=== PATIENT | female | born 1955 | race Caucasian/White ===

== ENCOUNTER → 2016-10-17 | Outpatient (CLI) | payer OTHER | LOC: CIMAGING 14:46 | PROVIDERS: ATTEND Family Medicine | DX: Z12.31 Encounter for screening mammogram for malignant neoplasm of breast (principal) | CPT/HCPCS: G0202 ==

== ENCOUNTER 2017-08-03 12:43 | Emergency (ER) | payer OTHER ==
--- NOTE | 2017-08-03 13:02 | CPEKG ---
Heart Rate: 136 RR Interval: 441 QRSD Interval: 124 QT Interval: 324 QTC Interval: 488 QRS [place]: 34 T Wave [place]: 94 EKG Severity - ABNORMAL ECG - EKG Impression: ATRIAL FLUTTER, A-RATE 300 EKG Impression: VENT PREEXCITATION, RIGHT ACCESSORY PATHWAY Electronically Signed By: Nilam Abbott 03-Aug-2017 21:03:05
[2017-08-03] MEDS ORDERED: ASPIRIN 81 MG CHEWABLE TAB PO ONE (13:09)
[2017-08-03] MEDS ORDERED: NS 1,000 ML IV ONE (13:10)
--- NOTE | 2017-08-03 13:12 | EDPHY ---
H & P Stated Complaint: FEELS RAPID HEART BEAT/SENT BY DR. RICHEY EKG Time Seen by Provider: 08/03/17 12:56 HPI/ROS: CHIEF COMPLAINT: Palpitations, lightheaded HISTORY OF PRESENT ILLNESS: 62-year-old female presents emergency department from her primary care physician's office. She has a history of atrial fibrillation, paroxysmal, and is currently on metoprolol as well as Eliquis. She has been taking flecainide in the past but it sounds as if there has been some recent changes to her medications and she has been taking the flecainide only once a day for the last week or so. Her metoprolol was increased to 100 mg a day the about 2 weeks ago and then decreased again to 50 about a week ago. She denies any fevers or chills, cold or cough symptoms, nausea, vomiting, or diarrhea preceding today's event. She went to primary care physician's office today for follow-up regarding a visit for chest pain thought to be related to a GI issue which had occurred 2 weeks ago. While she was at her primary care physician's office she developed palpitations. Of note she has recently had a 48 hr Holter monitor during which time she denies feeling any atrial fibrillation or flutter. No fever, chills, shortness of breath, vomiting, diarrhea, urinary complaints, headache, lightheadedness. REVIEW OF SYSTEMS: Aside from elements discussed in the HPI, a comprehensive 10-point review of systems was reviewed and is negative. PAST MEDICAL HISTORY: Atrial fibrillation/atrial flutter. SOCIAL HISTORY: . VITAL SIGNS Reviewed by me. HR varies between 110-136. GENERAL: Well-developed, well-nourished, resting comfortably in no respiratory distress. HEENT: Atraumatic. Eyes: No icterus, no injection. Mouth: moist mucous membranes. No erythema or lesions. Neck: supple with no adenopathy. LUNGS: Clear to auscultation bilaterally, no wheezes, rhonchi or rales. CARDIAC: Irregularly irregular. ABDOMEN: Soft, nontender, nondistended, bowel sounds normal. BACK: No CVA tenderness. EXTREMITIES: No trauma. No edema. Range of motion is normal throughout. NEURO: Alert and oriented, grossly nonfocal. SKIN: Warm and dry, no rash. PSYCHIATRIC: Normal mentation, no agitation. - Personal History Current Tetanus Diphtheria and Acellular Pertussis (TDAP): Yes - Medical/Surgical History Hx Asthma: No Hx Chronic Respiratory Disease: No Hx Diabetes: No Hx Cardiac Disease: Yes Hx Renal Disease: No Hx Cirrhosis: No Hx Alcoholism: No Hx HIV/AIDS: No Hx Splenectomy or Spleen Trauma: No Other PMH: A.FIB ON ELIQUIS, UPPER GI ISSUES, - Social History Smoking Status: Never smoked Constitutional: Initial Vital Signs Temperature (C) 36.5 C 08/03/17 12:49 Heart Rate 73 08/03/17 12:49 Respiratory Rate 16 08/03/17 12:49 Blood Pressure 154/85 H 08/03/17 12:49 O2 Sat (%) 97 08/03/17 12:49 O2 Delivery Mode Room Air Allergies/Adverse Reactions: No Known Allergies Allergy (Unverified 12/15/09 17:33) Home Medications: Medication Instructions Recorded Metoprolol 12/15/09 Eliquis 08/03/17 Metoprolol Succinate Xr [Toprol Xl 50 mg PO BID #60 tab.sr 08/03/17 50 mg (*)] Medical Decision Making - Diagnostics EKG Interpretation: 12-LEAD EKG: Please see the full report in [facility]. My interpretation: Atrial flutter ventricular pre-excitation, right accessory pathway. Imaging Results: CXR: Impression: 1. Mild peribronchial thickening suggesting airways disease/bronchitis. 2. Additional findings as above. Dictated By: Aaron Tim MD Imaging: I viewed and interpreted images myself ED Course/Re-evaluation: 63-year-old female presenting with palpitations. EKG demonstrates atrial flutter. Patient's course was discussed with Dr. Cindy Stallings from [facility]. Patient had been advised to stop taking flecainide by Dr. Dorantes about a week ago. She does report that she has continued to take flecainide 1 tablet a day. Her metoprolol was decreased from 100 mg to [address] Stallings: 1. Stop taking flecainide altogether. It is not controlling her rhythm and it may have organized her atrial fibrillation into atrial flutter. 2. Begin taking metoprolol 50 mg twice daily for a total of 100 mg a day. 3. Follow up with Dr. Dorantes next week. Re-examination at 3:00 p.m.: Patient's heart rate is 90-100. Blood pressure 107/74. She is resting comfortably. I discussed the recommendations above. She understands. She will follow up with Dr. Dorantes. She is given prescription for metoprolol 50 mg twice daily. She was again instructed not to take flecainide. Differential Diagnosis: Differential diagnoses for the patient's sensation of palpitations was considered including but not limited to sinus tachycardia, PACs, PVCs, SVT, atrial fibrillation, atrial flutter, anxiety, panic attack. - Data Points Laboratory Results: Laboratory Results 08/03/17 13:12 08/03/17 13:12 Medications Given: Discontinued Medications Aspirin (Aspirin) 324 mg PO EDNOW ONE Stop: 08/03/17 13:10 Last Admin: 08/03/17 13:26 Dose: 324 mg Sodium Chloride (Ns) 1,000 mls @ 0 mls/hr IV ONCE ONE; Wide Open PRN Reason: Protocol Stop: 08/03/17 13:11 Last Admin: 08/03/17 13:25 Dose: 1,000 mls Metoprolol Succinate (Toprol Xl) 50 mg PO EDNOW ONE Stop: 08/03/17 13:34 Last Admin: 08/03/17 13:40 Dose: 50 mg Departure - Departure Disposition: Home, Routine, Self-Care Clinical Impression: Palpitations Atrial flutter Qualifiers: Atrial flutter type: unspecified Qualified Code(s): I48.92 - Unspecified atrial flutter Condition: Good Instructions: Atrial Flutter (ED) Additional Instructions: 1. Begin taking metoprolol 50 mg 2 times a day. 2. Be sure you stay well-hydrated, drink plenty of fluids and get plenty of rest. 3. Stop taking flecainide. 4. Please follow up with Dr. Dorantes early next week. Referrals: DANIELA RUIZ [Primary Care Provider] - As per Instructions Prescriptions: Metoprolol Succinate Xr [Toprol Xl 50 mg (*)] 50 mg PO BID #60 tab.sr
[2017-08-03 13:19] LABS: PLATELET COUNT 441 10^3/uL (150-400)
[2017-08-03] MEDS ORDERED: METOPROLOL SUCCINATE XR 25 MG TAB PO ONE (13:33)
[2017-08-03 15:19] VITALS: BP 107/60
== END 2017-08-03 15:26 | disposition home or self-care (01) ==
DX: I48.92 Unspecified atrial flutter (principal); E86.9 Volume depletion, unspecified

== ENCOUNTER 2017-08-15 11:22 | Inpatient (IN) | payer OTHER ==
[2017-08-15 13:30] LABS: PLATELET COUNT 381 10^3/uL (150-400)
[2017-08-15 13:37] LABS: INR 1.12 (0.83-1.16); PROTIME(PATIENT) 14.6 SEC (12.0-15.0)
--- NOTE | 2017-08-15 13:54 | CPEKG ---
Heart Rate: 120 RR Interval: 500 QRSD Interval: 82 QT Interval: 304 QTC Interval: 430 QRS [place]: 4 T Wave [place]: -29 EKG Severity - ABNORMAL ECG - EKG Impression: ATRIAL FIBRILLATION, V-RATE 73-153 EKG Impression: VENTRICULAR PREMATURE COMPLEX EKG Impression: BORDERLINE T ABNORMALITIES, INFERIOR LEADS Electronically Signed By: Guillermo Eastman 15-Aug-2017 21:13:30
[2017-08-15] MEDS ORDERED: SOTALOL HCL 80 MG TAB PO ONE (13:58)
[2017-08-15] MEDS ORDERED: ACETAMINOPHEN 325 MG TAB PO PRN (14:12)
[2017-08-15] MEDS ORDERED: CARBOXYMETHYLCELLULOSE 1% 0.4 ML DROPERETTE EACHEYE PRN (14:12)
--- NOTE | 2017-08-15 15:01 | PDCARPN ---
Cardiology Progress Note Chief Complaint: PAF Assessment/Plan: Assessment: 62F PMH htn, PAF, dyslipidemia, here for Sotalol loading. Has been noting worsening exercise tolerance. Last echo 10/09 reviewed showed normal LVEF, + diastolic dysfunction, Holter 08/10 with PAF, baseline ECG (personally interpreted ) shows AF with elevated V rates. Please see office note from that acts as H&P. #. PAF: started on Sotalol [id number] of 2 on Eliquis likely DCCV prior to discharge #. htn: BP somewhat elevated will see effects on BP #. DVT ppx: on Eliquis and plan on early ambulation #. LOS: inpt for high risk med titration Plan: - Start Sotalol - likely CV on Sunday prior to discharge 08/15/17 15:24 Subjective: Feels some dyspnea and palps. Objective: Vital Signs (8 Hrs) Temp Pulse BP 08/15/17 14:07 133 H 121/93 H 08/15/17 11:50 98.4 F 105 H 133/98 H Intake/Output (24 Hrs) 08/14/17 08/15/17 08/16/17 05:59 05:59 05:59 Other: Weight 72.4 kg Number of Voids Toilet 1 Result Diagrams: 08/15/17 13:10 08/15/17 13:10 Telemetry: AF Echocardiogram: 08/09 with normal EF, +DD, mild MR, trace TR - Physical Exam Constitutional: no apparent distress Eyes: PERRL, anicteric sclera Ears, Nose, Mouth, Throat: no oral ulcers Cardiovascular: regular rate and rhythm Respiratory: clear to auscultate bilat Gastrointestinal: normoactive bowel sounds Skin: no rashes, no abrasions Neurologic: AAOx3 Psychiatric: cooperative, interactive ICD10 Worksheet Patient Problems: Problems Problem Status Onset Afib Acute Atrial flutter Acute Palpitations Acute - ICD10 Problem Qualifiers (1) Afib
--- NOTE | 2017-08-15 15:22 | PDMN ---
Medical Necessity Medical necessity: Pt meets INPT criteria per and [facility] [place] M-505 Atrial Fibrillation (initiation of antiarrhythmic drug therapy that has significant proarrhythmic potential - sotalol).
--- NOTE | 2017-08-15 16:24 | CPEKG ---
Heart Rate: 108 RR Interval: 556 QRSD Interval: 78 QT Interval: 324 QTC Interval: 435 QRS [place]: 23 T Wave [place]: -57 EKG Severity - ABNORMAL ECG - EKG Impression: ATRIAL FIBRILLATION EKG Impression: MULTIFORM VENTRICULAR PREMATURE COMPLEXES EKG Impression: NONSPECIFIC REPOL ABNORMALITY, INFERIOR LEADS Electronically Signed By: Guillermo Eastman 15-Aug-2017 21:13:24
[2017-08-15] MEDS: APIXABAN 5 MG TAB PO SCH (21:18)
[2017-08-15] MEDS: SOTALOL HCL 80 MG TAB PO SCH (21:18)
--- NOTE | 2017-08-15 23:30 | CPEKG ---
Heart Rate: 69 RR Interval: 870 P-R Interval: 172 QRSD Interval: 78 QT Interval: 452 QTC Interval: 485 P [place]: 45 QRS [place]: 22 T Wave [place]: 18 EKG Severity - BORDERLINE ECG - EKG Impression: SINUS RHYTHM EKG Impression: BORDERLINE T ABNORMALITIES, ANT-LAT LEADS Electronically Signed By: Ja King 16-Aug-2017 10:48:58
[2017-08-16 04:13] LABS: INR 1.17 (0.83-1.16); PROTIME(PATIENT) 15.1 SEC (12.0-15.0)
[2017-08-16] MEDS: SOTALOL HCL 80 MG TAB PO SCH ×2 (08:49→20:56)
[2017-08-16] MEDS: VITAMIN B COMPLEX 1 EA CAP/TAB PO SCH (08:51)
[2017-08-16] MEDS: FERROUS SULFATE 325 MG TAB PO SCH (08:51)
[2017-08-16] MEDS: APIXABAN 5 MG TAB PO SCH ×2 (08:52→20:56)
[2017-08-16] MEDS: MULTIVITAMINS 1 EACH TAB PO SCH (08:52)
--- NOTE | 2017-08-16 11:04 | CPEKG ---
Heart Rate: 76 RR Interval: 789 P-R Interval: 164 QRSD Interval: 82 QT Interval: 444 QTC Interval: 500 P [place]: 51 QRS [place]: 36 T Wave [place]: 15 EKG Severity - BORDERLINE ECG - EKG Impression: SINUS RHYTHM EKG Impression: BORDERLINE T ABNORMALITIES, ANTERIOR LEADS EKG Impression: BORDERLINE PROLONGED QT INTERVAL Electronically Signed By: Ja King 16-Aug-2017 15:26:59
--- NOTE | 2017-08-16 12:28 | ASMTCMCOM ---
CM Note CM Note Notes: Pt here at least through 08/18/17 due to Sotolol monitoring. Pt lives at home with her . PT/OT eval has not been ordered. At this time it appears Pt will be able to return home independently. CM will continue to be available if needed. D/C Plan: Independent Date Signed: 08/16/2017 12:27 PM Electronically Signed By:Ade Morales
--- NOTE | 2017-08-16 13:04 | PDCARPN ---
Cardiology Progress Note Chief Complaint: AF/sotalol titration Assessment/Plan: Assessment: 62F PMH htn, PAF, dyslipidemia, here for Sotalol loading. Has been noting worsening exercise tolerance. Last echo 10/09 reviewed showed normal LVEF, + diastolic dysfunction, Holter 08/10 with PAF, baseline ECG (personally interpreted ) shows AF with elevated V rates. Please see office note from that acts as H&P. #. PAF: started on Sotalol [id number] of 2 on Eliquis converted to SR #. htn: BP appears controlled #. DVT ppx: on Eliquis and plan on early ambulation #. LOS: inpt for high risk med titration Plan: - converted to SR/ continue Sotalol at current dosing 08/16/17 13:02 Subjective: Feels a little fatigued but dyspnea/cp now resolved in SR. Reviewed/Discussed With: other (Dr. Dorantes) Objective: Vital Signs (8 Hrs) Temp Pulse Resp BP Pulse Ox 08/16/17 11:37 98.0 F 71 12 131/83 H 90 L 08/16/17 07:36 97.7 F 73 16 125/82 H 92 Intake/Output (24 Hrs) 08/15/17 08/16/17 08/17/17 05:59 05:59 05:59 Intake Total 1050 Balance 1050 Intake: Oral (ml) 1050 Other: Weight 72.4 kg Intake Quantity Yes Sufficient Number of Voids Toilet 1 Number of Stools Toilet 1 Result Diagrams: 08/15/17 13:10 08/16/17 03:53 EKG: personally interpreted SR PRASHANTH, QTcB 500 Telemetry: SR - Physical Exam Constitutional: healthy appearing, no apparent distress Eyes: anicteric sclera Ears, Nose, Mouth, Throat: moist mucous membranes Cardiovascular: regular rate and rhythm Respiratory: clear to auscultate bilat Neurologic: AAOx3 Psychiatric: cooperative, interactive ICD10 Worksheet Patient Problems: Problems Problem Status Onset Afib Acute Atrial flutter Acute Palpitations Acute - ICD10 Problem Qualifiers (1) Afib
[2017-08-17] MEDS ORDERED: SOTALOL HCL 80 MG TAB PO SCH ×3 (09:00→21:00)
--- NOTE | 2017-08-17 09:24 | CPEKG ---
Heart Rate: 69 RR Interval: 870 P-R Interval: 164 QRSD Interval: 84 QT Interval: 464 QTC Interval: 497 P [place]: 44 QRS [place]: 23 T Wave [place]: 45 EKG Severity - BORDERLINE ECG - EKG Impression: SINUS RHYTHM EKG Impression: BORDERLINE T ABNORMALITIES, ANTERIOR LEADS EKG Impression: BORDERLINE PROLONGED QT INTERVAL Electronically Signed By: Guillermo Eastman 18-Aug-2017 07:02:00
[2017-08-17] MEDS: VITAMIN B COMPLEX 1 EA CAP/TAB PO SCH (09:28)
[2017-08-17] MEDS: FERROUS SULFATE 325 MG TAB PO SCH (09:28)
[2017-08-17] MEDS: APIXABAN 5 MG TAB PO SCH (09:28)
[2017-08-17] MEDS: MULTIVITAMINS 1 EACH TAB PO SCH (09:28)
--- NOTE | 2017-08-17 10:34 | ASDISCHSUM ---
Discharge Information Plan Status:Home with No Needs Medically Cleared to Leave:08/17/2017 Discharge Date:08/17/2017 CM D/C Disposition:Home, Routine, Self-Care ADT D/C Disposition:Home, Routine, Self-Care Projected Discharge Date:08/17/2017 Transportation at D/C: Discharge Delay Reason: Follow-Up Date:08/17/2017 Discharge Slot: Final Diagnosis: Placement Information Patient Contact Information Contact Name:DEMARCUS Relationship: Address:[address] City:[place] Alternate Phone: State/Zip Code:[place] [address] Email: Financial Information Financial Class:HMO and PPO Plans Primary Plan Desc:HMO [place] [employer] Primary Plan Number:[id number] Secondary Plan Desc: Secondary Plan Number: Assessment Information LACE LACE Length of stay for Answers: 1 day current admission Acuity / Level of Answers: Yes Care: Did the patient have an inpatient admission? Comorbidities - select Answers: Other Notes: PMH, htn, PAF, dyslipid kiko all that apply a # of Emergency department Answers: 1-2 visits in the last 6 months Score: 6 Date Signed: 08/17/2017 10:32 AM Electronically Signed By:Priscila Stuart RN [facility] CM Progress Note CM Note CM Note Notes: Pt here at least through 08/18/17 due to Sotolol monitoring. Pt lives at home with her . PT/OT eval has not been ordered. At this time it appears Pt will be able to return home independently. CM will continue to be available if needed. D/C Plan: Independent Date Signed: 08/16/2017 12:27 PM Electronically Signed By:Ade Morales Case Management Discharge Plan Note Case Management Discharge Discharge Order Complete? Answers: Yes Patient to Obtain Answers: Independently Medications Discharge Comments Notes: 08/17/2017 Case Management Note Pt to discharge independent with follow up as directed. Date Signed: 08/17/2017 10:33 AM Electronically Signed By:Priscila Stuart RN Intervention Information
--- NOTE | 2017-08-17 11:13 | GDS ---
[f rep st] DISCHARGE SUMMARY DISCHARGE DIAGNOSES: 1. Paroxysmal atrial fibrillation, status post sotalol titration in this admission. 2. Untreated dyslipidemia. 3. Hypertension. PROCEDURES: Serial EKGs. BRIEF HISTORY: Please see dictated H and P from our office for complete details. In brief, the tasha salazar is a 62-year-old female with a past medical history significant for hypertension, dyslipidemia, p aroxysmal atrial fibrillation, who presented for sotalol titration. Due to some QTc prolongation, he r dose has been decreased to 80 mg p.o. b.i.d. Her blood pressure has been somewhat elevated, partic ularly on day of discharge. She is advised to start a blood pressure log and bring that to her next office visit. PHYSICAL EXAM: VITAL SIGNS: On day of discharge, blood pressure of 148/87, heart rate of 72, respir ations 20, O2 saturation 90% on room air, temp of 98.1 degrees Fahrenheit. GENERAL: She is a very p leasant female in no apparent distress. HEAD: Normocephalic, atraumatic. EYES: PERRL. HEART: Re gular rate and rhythm. LUNGS: Clear. LABORATORY DATA: BMP: Sodium 143, potassium 4.5, chloride 108, CO2 27, BUN 14, creatinine 0.6, gluc ose 91, magnesium 2.1. RESULTS PENDING: None. DIET: Per previous. ACTIVITY: As tolerated. DISCHARGE MEDICATIONS: Please see med reconciliation for complete details. She is to continue her a pixaban, Refresh eye drops, Tylenol as needed, vitamin B complex, multivitamin, ferrous sulfate. Her new prescription is sotalol 80 mg p.o. b.i.d. She is to stop her metoprolol. DISCHARGE INSTRUCTIONS: 1. Blood pressure diary with twice daily blood pressure readings to be brought into next office appo intment. 2. Follow up with Dr. Dorantes in 1 week's time with office ECG. /[id number]/MODL
[2017-08-17 11:23] VITALS: BP 140/101
--- NOTE | 2017-08-17 11:29 | CPEKG ---
Heart Rate: 70 RR Interval: 857 P-R Interval: 160 QRSD Interval: 84 QT Interval: 420 QTC Interval: 454 P [place]: 42 QRS [place]: 23 T Wave [place]: -7 EKG Severity - BORDERLINE ECG - EKG Impression: SINUS RHYTHM EKG Impression: BORDERLINE T ABNORMALITIES, DIFFUSE LEADS Electronically Signed By: Nestor Dorantes 20-Aug-2017 10:22:02
== END 2017-08-17 12:15 | disposition home or self-care (01) | DRG 310 ==
LOC: F2W 11:22 → OBSVTOIN 14:15
PROVIDERS: ADMIT Internal Medicine Cardiovascular Disease; ATTEND Internal Medicine Cardiovascular Disease
DX: I48.0 Paroxysmal atrial fibrillation (principal); E78.5 Hyperlipidemia, unspecified; I10 Essential (primary) hypertension

== ENCOUNTER → 2018-08-22 | Outpatient (CLI) | payer OTHER | LOC: CIMAGING 10:10 ==